=== PATIENT | female | born 1970 | race Caucasian/White ===

== ENCOUNTER → 2017-09-28 | Outpatient (CLI) | payer BC ==
[2017-09-28 12:07] LABS: HEMATOCRIT 40.8 % (37.0-47.0); HEMOGLOBIN 13.9 g/dl (12.0-16.0); MEAN CELL VOLUME 91.9 fl (81.0-99.0); MEAN CORPUSCULAR HGB 31.3 pg (27.0-31.0); MEAN CORPUSCULAR HGB CONC 34.1 g/dl (33.0-37.0); MEAN PLATELET VOLUME 10.2 fl (9.6-12.3); RED BLOOD COUNT 4.44 10*6/uL (4.10-5.10); RED CELL DISTRI WIDTH 12.2 % (0-14.5); WHITE BLOOD COUNT 7.9 10*3/uL (4.8-10.8)
[2017-09-28 12:28] LABS: THYROID STIM HORMONE (HS) 0.586 uIU/ml (0.358-4.75)
[2017-09-29 08:13] LABS: RHEUMATOID ARTHRITIS FACTOR <10.0 IU/mL (0.0-13.9)
== END | disposition home or self-care (01) ==
LOC: LAB 11:08 → ORTHO 11:08
PROVIDERS: Orthopaedic Surgery
DX: R53.82 Chronic fatigue, unspecified (principal)

== ENCOUNTER → 2018-02-13 | Outpatient (CLI) | payer BC | END | disposition home or self-care (01) | LOC: ORTHO 00:34 | DX: M71.21 Synovial cyst of popliteal space [Baker], right knee (principal) ==